=== PATIENT | male | born 1995 | race Caucasian/White ===

== ENCOUNTER 2016-12-14 16:34 | Emergency (ER) | payer BC ==
[~2016-12-14] VITALS: Ht 177.8 cm; Wt 95.2 kg
--- NOTE | ~2016-12-14 | CR281 ---
[facility] A Service of [facility] RADIOLOGY TEXT RESULTS PATIENT: JOELLE COX LOCATION: SED : [birth year] UNIT #: [id number] AGE: [address]: AMBER BAHENA SEX: M ORDER DR: [id number] [address] [address] [id number] E MR#: [id number] Acc #: [id number] NAME: JOELLE COX : 1995 SEX: M STUDY DATE/TIME: 12/14/2016 17:01 UNIT: SED ROOM: STUDY DESCRIPTION: CR Wrist Min 3 View Lt Attending Physician: Amber Bahena A.P.R.N. Ordering Physician: Amber Bahena A.P.R.N. Primary Care Physician: No Primary Care Physician MEDICAL IMAGING REPORT This report is preliminary unless electronic signature is present. EXAM Left wrist, 3 views COMPARISON None. INDICATIONS A 20-year-old male with left wrist pain after puncture wound with a drill bit today. FINDINGS Soft tissue defect is seen at the ulnar aspect of the carpus. No associated radiopaque foreign body. Bones are anatomically aligned. No evidence of bony defect or acute fracture. Subcutaneous gas is seen at the dorsum of the wrist. IMPRESSION 1. No acute fracture, dislocation or radiopaque foreign body. 2. Subcutaneous gas consistent with given history of puncture wound. Dictated by... Tolu Sears M.D. THIS IS AN ELECTRONICALLY VERIFIED REPORT Tolu Sears M.D. at 12/19/2016 1:17 PM DON/elijah TD: 12/14/2016 23:36 JOB #: [id number] [facility] A Service of [facility] RADIOLOGY TEXT RESULTS PATIENT: JOELLE COX LOCATION: SED : [birth year] UNIT #: [id number] AGE: [address]: AMBER BAHENA SEX: M ORDER DR: MEDICAL IMAGING REPORT Page 1 of 1
[~2016-12-14 16:34] MED LIST: FOCALIN XR PO; LORTAB 7.5-5001 TAB PO
[2016-12-14] MEDS ORDERED: WELLBUTRIN XL150 M1 (16:41)
== END 2016-12-14 19:20 | disposition home or self-care (01) ==
LOC: SED 16:34
DX: S61.412A Laceration without foreign body of left hand, initial encounter (principal); X58.XXXA Exposure to other specified factors, initial encounter
CPT/HCPCS: 12001; 36415; 73110; 96361; 96374; 96375; 99283; J0690; J2270; J2405